=== PATIENT | female | born 1980 | race Caucasian/White ===

== ENCOUNTER 2025-05-20 03:13 | Outpatient (CLI) | payer MEDICARE, MEDICAID, SELFPAY ==
--- NOTE | 2025-05-20 | DI.NM_ITS ---
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 TECHNIQUE: Injected Dose: 25 mCi Tc-99m MDP Delayed Images: 2-3 hours. COMPARISON: No exams were available for comparison FINDINGS: Symmetric axial uptake. Bilateral renal excretion is identified. No focal area of intense suspicious uptake is seen. IMPRESSION: 1. No evidence of metastatic disease. DATA REPOSITORY:
== END 2025-05-20 03:33 ==
PROVIDERS: Visit Provider Internal Medicine
DX: C50.411 Malignant neoplasm of upper-outer quadrant of right female breast (principal); Z17.0 Estrogen receptor positive status [ER+]
CPT/HCPCS: 78306

== ENCOUNTER → 2025-08-21 03:36 | Outpatient (CLI) | payer MEDICARE, MEDICAID, SELFPAY ==
--- NOTE | 2025-08-21 09:23 | DI.DEXA_ITS ---
Exam(s) XR DEXA BONE DENSITY W/WO TONI EXAM: XR DEXA BONE DENSITY W/WO TONI CLINICAL HISTORY: RT BREAST CA C50.411 Z17.0 MED MGMT Z79.899 PREMATURE MENOPAUSE E28.319 TECHNIQUE: Routine DEXA evaluation of the lumbar spine, hip, or forearm. COMPARISON: No exams were available for comparison FINDINGS: Performed on a Hologic unit. Lateral image: No compression fracture evident. Lumbar Spine total T-score: -0.3 which is in normal range. Hip total T-score:-0.3 which is within normal range. Independent reading at the level of the femoral neck yields T-score of -0.8 which is within normal range Forearm total T-score: -1.0 which is within normal range. IMPRESSION: Bone mineral density measures in the normal range. Fracture risk is low. Note: Any spine fracture indicates 5x risk for subsequent spine fracture and 2x risk for subsequent hip fracture. World Health Organization criteria for BMD interpretation classify patients: Normal...... T- Score at or above -1.0 Osteopenic... T- Score between -1.0 and -2.5 Osteoporosis... T-Score at or below -2.5
== END ==
PROVIDERS: Visit Provider Nurse Practitioner Adult Health
DX: C50.411 Malignant neoplasm of upper-outer quadrant of right female breast (principal); E28.319 Asymptomatic premature menopause; Z17.0 Estrogen receptor positive status [ER+]; Z79.899 Other long term (current) drug therapy
CPT/HCPCS: 77080